=== PATIENT | male | born 1955 | race Caucasian/White ===

== ENCOUNTER 2024-01-22 10:21 | Outpatient (CLI) | payer OTHER | END 2024-01-22 10:22 | disposition home or self-care (01) | LOC: CT 10:21 | PROVIDERS: ATTEND Orthopaedic Surgery | DX: M17.11 Unilateral primary osteoarthritis, right knee (principal) ==

== ENCOUNTER 2024-01-27 09:49 | Outpatient (CLI) | payer OTHER ==
[2024-01-27 12:29] LABS: #Basophils 0.05 10x3/uL (0.0-0.2); %Basophils 0.7 % (0.0-1.0); %Eosinophils 2.4 % (0.0-10.0); %Lymphocytes 44.7 % (21.0-51.0); %Monocytes 7.5 % (0.0-10.0); %Neutrophils 44.4 % (42.0-75.0); Hematocrit 47.8 % (42.0-52.0); Hemoglobin 15.5 g/dL (14.0-18.0); Mean Corpuscular HGB CONC 32.4 g/dL (32.0-36.0); Mean Corpuscular Hemoglobin 31.1 pg (27.0-31.0); Mean Corpuscular Volume 95.8 fL (78.0-98.0); Mean Platelet Volume 9.4 fL (7.4-10.4); Platelet Count 223 10x3/uL (130-400); Red Blood Cell (RBC) Count 4.99 mill/uL (4.70-6.10)
[2024-01-27 12:45] LABS: Prothrombin Time 12.9 sec (12.0-14.7)
[2024-01-27 12:58] LABS: Anion Gap 14 mmol/L (10-20); BUN (Urea Nitrogen) 19 mg/dL (8.4-25.7); Calc. Creatinine Clearance 0 mL/min (70-130); Calcium 9.4 mg/dL (7.8-10.44); Carbon Dioxide 24 mmol/L (23-31); Chloride 106 mmol/L (98-107); Estimated GFR 93; Glucose 96 mg/dL (80-115); Potassium 4.3 mmol/L (3.5-5.1); Sodium 140 mmol/L (136-145)
[2024-01-27 14:33] LABS: Bilirubin Negative (Negative); Blood, Urine Negative (Negative); Clarity Clear (Clear); Glucose, Urine (Dipstick) Normal (Negative); Ketone, Urine Negative (Negative); Leukocyte Negative Leu/uL (Negative); Nitrite Negative (Negative); Protein, Urine (Dipstick) 50 mg/dL (Neg-Trace); Specific Gravity, Urine 1.023 (1.002-1.036); Urobilinogen Normal mg/dL (Less than 2)
== END 2024-01-27 09:50 | disposition home or self-care (01) ==
LOC: LABBT 09:49
PROVIDERS: ATTEND Orthopaedic Surgery
DX: Z01.818 Encounter for other preprocedural examination (principal); M17.11 Unilateral primary osteoarthritis, right knee
CPT/HCPCS: 71046; 80048; 81003; 85025; 85610; 87081; 93005; 93010

== ENCOUNTER 2024-02-01 06:01 | Observation (INO) | payer OTHER ==
[2024-01-27 10:16] VITALS: BMI 30.5
[2024-02-01] MEDS ORDERED: Tranexamic Acid 1,000 MG/10 ML VIAL ONE ×2 (06:10→09:18)
[2024-02-01] MEDS ORDERED: Sodium Chloride 0.9% 100 ML ONE (06:10)
[2024-02-01] MEDS ORDERED: Vancomycin (BATCH) 1.5 GM/300 ML BAG ONE (06:10)
[2024-02-01] MEDS ORDERED: Midazolam HCl 2 mg/2 ml Vial ONE (06:23)
[2024-02-01] MEDS ORDERED: fentaNYL 50 mcg/mL 1 mL Vial ONE (06:23)
[2024-02-01] MEDS ORDERED: Lidocaine 1% (PF) 30 ML VIAL ONE (06:24)
[2024-02-01] MEDS ORDERED: Bupivacaine PF 0.5% 30 ML VIAL ONE ×2 (06:25→07:47)
[2024-02-01] MEDS ORDERED: CEFAZOLIN 2 GM VIAL ONE (06:53)
[2024-02-01] MEDS ORDERED: Propofol 1,000 MG/100 ML VIAL IV ONE (06:57)
[2024-02-01] MEDS ORDERED: Promethazine HCl 25 MG/ML VIAL ONE ×2 (06:57→09:19)
[2024-02-01] MEDS ORDERED: Ondansetron PF 4 MG/2 ML Vial IVP PRN ×2 (07:12→07:15)
[2024-02-01] MEDS ORDERED: traMADol HCl 50 MG TAB PO PRN ×3 (07:12→07:15)
[2024-02-01] MEDS ORDERED: HYDROcodone/Acetaminophen 10/325 mg Tablet PO PRN ×3 (07:12→07:15)
[2024-02-01] MEDS ORDERED: Acetaminophen 325 MG TAB PO PRN (07:12)
[2024-02-01] MEDS ORDERED: Zolpidem Tartrate 5 MG TAB PO PRN (07:12)
[2024-02-01] MEDS ORDERED: diphenhydrAMINE 25 MG CAP PO PRN (07:12)
[2024-02-01] MEDS ORDERED: Promethazine HCl 25 MG/ML VIAL IM PRN ×3 (07:12→08:59)
[2024-02-01] MEDS ORDERED: Ropivacaine 0.2% 550 ML 550 ML NERVE BLCK SCH (07:15)
[2024-02-01] MEDS ORDERED: fentaNYL 50 mcg/mL 1 mL Vial SLOW IVP PRN (07:15)
[2024-02-01] MEDS ORDERED: Tranexamic Acid 1,000 MG in Sodium Chloride 0.9% 100 ML IVPB SCH (07:15)
[2024-02-01] MEDS ORDERED: EPINEPHrine 1 MG/ML VIAL ONE (07:47)
[2024-02-01] MEDS ORDERED: Ketorolac Tromethamine 30 MG (1 mL) VIAL ONE (07:58)
[2024-02-01] MEDS ORDERED: Dexamethasone 20 MG/5 ML VIAL ONE (07:58)
[2024-02-01] MEDS ORDERED: Ondansetron PF 4 MG/2 ML Vial ONE (07:58)
[2024-02-01] MEDS ORDERED: Ondansetron HCl/PF 4 MG/2 ML Vial IVP PRN (08:59)
[2024-02-01] MEDS ORDERED: HYDROmorphone 2 MG/ML VIAL SLOW IVP PRN (08:59)
[2024-02-01] MEDS ORDERED: PACU-Morphine 4MG/ML VIAL SLOW IVP PRN (08:59)
[2024-02-01] MEDS ORDERED: HYDROmorphone 0.5 MG/0.5 ML SYRINGE ONE ×2 (09:19→09:44)
[2024-02-01] MEDS: Ketorolac Tromethamine 30 MG (1 mL) VIAL IVP SCH (11:56)
[2024-02-01] MEDS ORDERED: Ketorolac Tromethamine 30 MG (1 mL) VIAL IVP SCH (14:00)
[2024-02-01] MEDS: Sodium Chloride 0.9% 1,000 ML IV SCH (14:33)
[2024-02-01] MEDS: CEFAZOLIN 2 GM in Sodium Chloride 0.9% 100 ML IVPB SCH (16:18)
[2024-02-01] MEDS: Allopurinol 300 MG TAB PO SCH (16:58)
[2024-02-01] MEDS: Vancomycin (BATCH) 1.5 GM in Premix 1 BAG IVPB SCH (17:59)
[2024-02-01] MEDS: Aspirin 81 mg Enteric Coated Tablet PO SCH (18:24)
[2024-02-01] MEDS: Multivitamin W/ Minerals 1 TAB PO SCH (18:24)
[2024-02-01] MEDS: Amlodipine 5 MG TAB PO SCH (18:24)
[2024-02-01] MEDS: Ferrous Gluconate 324 MG TAB PO SCH (18:24)
[2024-02-01] MEDS: Senokot S 8.6-50 MG TAB PO SCH (18:24)
[2024-02-01] MEDS: Tamsulosin HCl 0.4 MG CAP PO SCH (20:43)
[2024-02-01] MEDS: HYDROcodone/Acetaminophen 10/325 mg Tablet PO PRN (20:53)
[2024-02-02] MEDS: Zolpidem Tartrate 5 MG TAB PO PRN (00:02)
[2024-02-02 05:26] LABS: Hematocrit 37.9 % (42.0-52.0); Hemoglobin 12.7 g/dL (14.0-18.0); Mean Corpuscular HGB CONC 33.5 g/dL (32.0-36.0); Mean Corpuscular Volume 95.5 fL (78.0-98.0); Mean Platelet Volume 9.8 fL (7.4-10.4); Platelet Count 170 10x3/uL (130-400); RBC Distribution Width 13.7 % (11.5-14.5); Red Blood Cell (RBC) Count 3.97 mill/uL (4.70-6.10)
[2024-02-02 08:18] VITALS: BP 120/70; TEMP 98.6
[2024-02-02] MEDS: FLU (Fluad Triv) TS24-25 (65UP)/MF59C/PF 45 MCG/0.5 ML Syringe IM ONE (09:30)
== END 2024-02-02 11:48 | disposition home or self-care (01) ==
LOC: SDC 06:01 → SURG A 10:41 → SDC 13:07
PROVIDERS: ADMIT Orthopaedic Surgery; ATTEND Orthopaedic Surgery
PROC: 0SRC0JZ Replacement of Right Knee Joint with Synthetic Substitute, Open Approach (ICD-10-PCS; principal; 2024-02-02)
PROC: 3E0T3BZ Introduction of Anesthetic Agent into Peripheral Nerves and Plexi, Percutaneous Approach (ICD-10-PCS; 2024-02-02)
DX: M17.11 Unilateral primary osteoarthritis, right knee (principal); M23.91 Unspecified internal derangement of right knee; M48.061 Spinal stenosis, lumbar region without neurogenic claudication; M10.9 Gout, unspecified; I10 Essential (primary) hypertension; E78.00 Pure hypercholesterolemia, unspecified; N40.0 Benign prostatic hyperplasia without lower urinary tract symptoms; Z98.890 Other specified postprocedural states; Z79.899 Other long term (current) drug therapy
CPT/HCPCS: 0055T; 27447; 64448; 36415; 85027; A4306; C1713; C1776; C1889; J0171; J0665; J1100; J1885; J2250; J2405; J2550; J2704; J2795; J3010; J3370